=== PATIENT | male | born 1945 | race Caucasian/White ===

== ENCOUNTER → 2023-06-17 13:49 | Outpatient (CLI) | payer MEDICARE, OTHER, SELFPAY ==
[2023-06-17 14:54] LABS: Prostate Specific Antigen 4.39 ng/mL (0.10-4.00)
== END ==
PROVIDERS: PCP Internal Medicine; Referring Provider Specialist; Visit Provider Specialist
DX: R97.20 Elevated prostate specific antigen [PSA] (principal)
CPT/HCPCS: 36415; 84153